=== PATIENT | male | born 1960 | race Caucasian/White ===

== ENCOUNTER 2017-09-25 17:07 | Emergency (ER) | payer MEDICARE ==
[2016-01-20 10:35] VITALS: BMI 26.5
[~2017-09-25 17:07] MED LIST: ALEVE220 MG PO; CARAFATE1 G PO; DILANTIN100 MG PO; ELIQUIS2.5 MG PO; HYDROCODONE-APA1 TAB PO; K-TAB10 MEQ PO; MAG-OX 400 MG400 MG PO; MS CONTIN15 MG PO; MULTIPLE VITAMI1 TA1 PO; MYSOLINE 50 MG50 MG PO; NORVASC2.5 MG PO; OMEGA 3 FISH OI1 CAP PO; OXYCODONE HCL5 MG PO; POTASSIUM CHLO10 ME1 PO; TRANDATE300 MG PO; ZANTAC150 MG PO
[2017-09-25 19:45] LABS: INR 0.89 (0.85-1.17); PROTIME 11.6 SECONDS (11.6-15.0)
== END 2017-09-25 21:00 | disposition home or self-care (01) ==
LOC: D.ER 17:07
PROVIDERS: Nurse Practitioner Family
DX: S80.12XA Contusion of left lower leg, initial encounter (principal); V43.52XA Car driver injured in collision with other type car in traffic accident, initial encounter; Y93.89 Activity, other specified; Y92.410 Unspecified street and highway as the place of occurrence of the external cause; F07.81 Postconcussional syndrome; S16.1XXA Strain of muscle, fascia and tendon at neck level, initial encounter; S39.012A Strain of muscle, fascia and tendon of lower back, initial encounter; S29.012A Strain of muscle and tendon of back wall of thorax, initial encounter; S81.812A Laceration without foreign body, left lower leg, initial encounter